=== PATIENT | male | born 1955 | race African-American/Black ===

== ENCOUNTER 2021-02-04 22:20 | Emergency (ER) | payer MEDICAID ==
[~2021-02-04] VITALS: Ht 177.8 cm; Wt 95.0 kg
[2021-02-05] MEDS ORDERED: IBUPROFEN 600MG TABLET PO ONE (01:00)
[2021-02-05 01:50] VITALS: BP 125/78
== END 2021-02-05 02:00 | disposition home or self-care (01) ==
LOC: ER 22:20
DX: S29.9XXA Unspecified injury of thorax, initial encounter (principal); F99 Mental disorder, not otherwise specified; Y04.0XXA Assault by unarmed brawl or fight, initial encounter; Y93.89 Activity, other specified; Y92.410 Unspecified street and highway as the place of occurrence of the external cause
CPT/HCPCS: 71045; 93005; 99283